=== PATIENT | female | born 1960 | race African-American/Black ===

== ENCOUNTER 2022-11-14 06:50 | Inpatient (IN) | payer OTHER ==
[~2022-11-14] VITALS: Ht 172.7 cm; Wt 88.5 kg
[2022-11-14] MEDS ORDERED: methylPREDNISolone SOD SUCC 125 MG/2ML VIAL IV ONE (07:00)
[2022-11-14] MEDS ORDERED: diphenhydrAMINE HCL 50 MG/ML VIAL IM ONE (07:00)
[2022-11-14] MEDS ORDERED: diphenhydrAMINE HCL 50 MG/ML VIAL ONE (07:11)
[2022-11-14] MEDS ORDERED: methylPREDNISolone SOD SUCC 125 MG/2ML VIAL ONE (07:11)
--- NOTE | 2022-11-14 07:15 | NUR ---
NAHOMY 40 FROM [facility] FOR SWOLLEN FACE AND LEFT HAND SINCE yesterday. denies blurring of vision, nausea nor vomiting. mentioned had same experience before due to anti HPN MEDS, WHICH WAS REDUCED DOSE BY HER MD.
--- NOTE | 2022-11-14 07:20 | NUR ---
IV ACCESS ESTABLISHED 20G RIGHT AC, BLOOD DRAWN AND SENT TO LAB.
--- NOTE | 2022-11-14 07:25 | NUR ---
meds given thru im and ivp
--- NOTE | 2022-11-14 07:32 | NUR ---
covid swab done, sent to lab
[2022-11-14 07:35] LABS: BASOPHILS % (AUTO) 0.5 % (0.0-2.0); EOSINOPHILS % (AUTO) 3.5 % (0.0-6.0); HEMATOCRIT 39 % (33-45); HEMOGLOBIN 12.6 g/dL (11.5-14.8); LYMPHOCYTES # (AUTO) 1.7 K/uL (0.8-4.8); LYMPHOCYTES % (AUTO) 29.6 % (20.0-44.0); MEAN CORPUSCULAR HGB CONC 33 g/dl (31.0-36.0); MEAN CORPUSCULAR VOLUME 89 fL (82-100); MONOCYTES # (AUTO) 0.5 K/uL (0.1-1.30); MONOCYTES % (AUTO) 8.1 % (2.0-12.0); NEUTROPHILS # (AUTO) 3.4 K/uL (1.8-8.9); NEUTROPHILS % (AUTO) 58.3 % (43.0-81.0); PLATELET COUNT (AUTO) 262 K/uL (150-450); RED BLOOD CELL COUNT(AUTO) 4.35 MIL/uL (4.0-5.2); WHITE BLOOD COUNT (AUTO) 5.8 K/uL (4.3-11.0)
[2022-11-14 07:45] LABS: CALCIUM, SERUM 9.5 mg/dL (8.5-10.1); CREATININE 0.9 mg/dL (0.6-1.3); POTASSIUM 4.1 mmol/L (3.5-5.1)
--- NOTE | 2022-11-14 07:49 | NUR ---
URINE COLLECTED , SENT TO LAB
--- NOTE | 2022-11-14 08:00 | NUR ---
SUBMITTED CLINICALS TO ADMITTING TO BEGIN INSURANCE PROCESS
[2022-11-14 08:20] LABS: BILIRUBIN,URINE NEGATIVE (NEGATIVE); COLOR,URINE YELLOW (YELLOW); LEUKOCYTE ESTERASE ,URINE 1+ (NEGATIVE); NITRITE, URINE NEGATIVE (NEGATIVE); PROTEIN,URINE NEGATIVE (NEGATIVE); UGLUCOSE NEGATIVE (NEGATIVE); UROBILINOGEN,URINE 0.2 EU/dL (0.2)
[2022-11-14 08:42] LABS: BACTERIA,URINE Rare /HPF (None Seen); RBC,URINE 0-2 /HPF (0-2); SQUAMOUS EPITHELIAL CELL,UR Few /HPF (None Seen)
--- NOTE | 2022-11-14 09:46 | NUR ---
Patient is resting comfortably in bed with eyes closed. Easily aroused. VSS
--- NOTE | 2022-11-14 11:07 | NUR ---
NURSING CALLED FOR ICU BED
--- NOTE | 2022-11-14 11:58 | NUR ---
may have diet per vo. dr mays .
--- NOTE | 2022-11-14 12:03 | NUR ---
pt prior to eating, performed swallowuing eval and she pass. she can swallow water and food.
--- NOTE | 2022-11-14 13:04 | NUR ---
bed 120-1
--- NOTE | 2022-11-14 14:03 | NUR ---
report given to alfonso nurse pt transfered with acls protocal pt remained stable during trasfer. inpatient nurse at bedside to recieve patient
--- NOTE | 2022-11-14 14:15 | NUR ---
EDUCATIONAL/DEVELOPMENT ASSISTANTICT DEVELOPMENT MANAGER NOTE PT ALERT AND ORIENTED X4. PT ON ROOM AIR TOLERATING AT 97%. R AC, IV INTACT, PATENT AND FLUSHING WELL. NOTED WITH FACIAL SWELLING. PT IS AMBULATORY WITH STANDY ASSISTANCE. WALKER AT BEDSIDE. CONNECTED TO EXTERNAL MEDIUM CYCLE SALESPERSON SINUS TACHYCARDIA. NO COMPLAINTS OF PAIN OR DISCOMFORT NOTED AT THIS TIME. ORIENTED PT TO UNIT, VERBALIZED UNDERSTANDING. ALL SAFETY MEASURES IN PLACE,. BEDSIDE TABLE WITHIN REACH. BED LOCKED AT LOWEST POSITION, SIDE RAILS UP X2. BED ALARM ON.
[2022-11-14 15:00] VITALS: BP_SYST 141; BP_SYST 148; BP_DIAS 80; BP_DIAS 88
[2022-11-14 17:00] VITALS: BP 148/80
[2022-11-14] MEDS ORDERED: ACETAMINOPHEN 325 MG TABLET PO PRN (17:30)
[2022-11-14] MEDS ORDERED: MAG HYDROX/AL HYDROX/SIMETH 30 ML UDC PO PRN (17:30)
[2022-11-14] MEDS ORDERED: MAGNESIUM HYDROXIDE 30 ML UDC PO PRN (17:30)
[2022-11-14] MEDS ORDERED: Z GUARD REMEDY 4 OZ OINT TP PRN (17:30)
[2022-11-14] MEDS ORDERED: ZOLPIDEM TARTRATE 5 MG TABLET PO PRN (17:30)
[2022-11-14] MEDS ORDERED: ONDANSETRON HCL/PF 4 MG/2 ML VIAL IVP PRN (17:30)
[2022-11-14] MEDS: FAMOTIDINE/PF INJ 20 MG/2 ML VIAL IV SCH ×2 (18:13→21:30)
[2022-11-14] MEDS: methylPREDNISolone SOD SUCC 125 MG/2ML VIAL IV SCH ×2 (18:13→21:30)
--- NOTE | 2022-11-14 18:40 | NUR ---
RN NOTE SPOKE WITH PHARMACY REGARDING 0 MEDICATIONS, AND ABOUT ADJUSTING TIME OF MEDICATIONS. SAID THEY WOULD LOOK AT IT. ALSO SPOKE WITH AND SAID OKAY TO GIVE THE MEDICATIONS SCHEDULED FOR 1729.
[2022-11-14] MEDS: diphenhydrAMINE HCL 50 MG/ML VIAL IV SCH ×2 (18:53→23:23)
--- NOTE | 2022-11-14 19:37 | NUR ---
BEE RANCHER CLOSING NOTE PT ALERT AND ORIENTED X4. PT ON ROOM AIR TOLERATING AT 97%. R AC, IV INTACT, PATENT AND FLUSHING WELL. NOTED WITH FACIAL SWELLING. PT IS AMBULATORY WITH STANDY ASSISTANCE. WALKER AT BEDSIDE. CONNECTED TO EXTERNAL NET APPLICATION ARCHITECT SINUS TACHYCARDIA AT THIS TIME. NO COMPLAINTS OF PAIN OR DISCOMFORT NOTED AT THIS TIME. ALL SAFETY MEASURES IN PLACE,. BEDSIDE TABLE WITHIN REACH. BED LOCKED AT LOWEST POSITION, SIDE RAILS UP X2. BED ALARM ON. ENDORSED TO NIGHT NEW RN FOR CONTUITY OF CARE
[2022-11-14 20:00] VITALS: BP 133/99
[2022-11-15] VITALS: BP 139/88
[2022-11-15 04:00] VITALS: BP 140/75
[2022-11-15] MEDS: methylPREDNISolone SOD SUCC 125 MG/2ML VIAL IV SCH ×3 (05:10→21:02)
[2022-11-15] MEDS: diphenhydrAMINE HCL 50 MG/ML VIAL IV SCH ×4 (05:10→23:35)
--- NOTE | 2022-11-15 06:39 | NUR ---
END OF SHIFT, PATIENT ASLEEP AT THIS TIME, AT ROOM AIR WITH O2 SAT LEVEL WNL, NSR/ST IN TELE MONITOR, IV SITE PATIENT AND INTACT, IVF INFUSING ORDERED, CONTINUE WITH SWELLING FACE,. NO AIRWAY COMPROMISED AT THIS TIME, STABLE DURING THE NIGHT WITH VS STABLE, CONT ON BENADRYL AND SOLU-MEDROL IVP, UNSTEADY, ASSISTANCE PROVIDED AT ALL TIMES, BED LOCKED AND IN LOWEST POSITION, S/R IP X2, INDEPENDENT WITH REPOSITION, WILL ENDORSE CONTINUITY OF CARE TO ONCOMING NURSE. Addendum: 11/15/22 at 0644 by WILLIAM THORPE RN NO IV FLUIDS INFUSING FOR THIS PATIENT.
[2022-11-15 07:26] LABS: CALCIUM, SERUM 9.7 mg/dL (8.5-10.1); CREATININE 0.9 mg/dL (0.6-1.3); MAGNESIUM 2.2 mg/dL (1.8-2.4); PHOSPHORUS 2.8 mg/dL (2.5-4.9); POTASSIUM 3.8 mmol/L (3.5-5.1)
[2022-11-15 07:38] LABS: BASOPHILS % (AUTO) 0.3 % (0.0-2.0); HEMATOCRIT 39 % (33-45); HEMOGLOBIN 12.7 g/dL (11.5-14.8); LYMPHOCYTES # (AUTO) 0.8 K/uL (0.8-4.8); LYMPHOCYTES % (AUTO) 7.4 % (20.0-44.0); MEAN CORPUSCULAR HGB CONC 33 g/dl (31.0-36.0); MEAN CORPUSCULAR VOLUME 90 fL (82-100); MONOCYTES # (AUTO) 0.1 K/uL (0.1-1.30); NEUTROPHILS % (AUTO) 91.3 % (43.0-81.0); PLATELET COUNT (AUTO) 290 K/uL (150-450); WHITE BLOOD COUNT (AUTO) 10.9 K/uL (4.3-11.0)
--- NOTE | 2022-11-15 07:40 | NUR ---
INSTRUCTIONAL SUPPORT SPECIALIST OPENING NOTE RECEIVED PT IN BED, AWAKE, A/0 X 4, ABLE TO VERBALIZE NEEDS. ON ROOM AIR, NO S/SX OF ACUTE RESPIRATORY DISTRESS NOTED AT THIS TIME. NO SOB. BREATHING IS EVEN AND UNLABORED. ON TELE MONITOR READING NORMAL SR, HR 100. IV ACCESS ON RAC #20G, PATENT AND INTACT, FLUSHES WELL, SL. ALL SAFETY MEASURES IN PLACE: BED LOCKED IN LOW POSITION, BED ALARM ON, HOB ELEVATED, SIDE RAILS UP X2, CALL LIGHT AND TABLE WITHIN REACH. WILL MONITOR THE PATIENT THROUGHOUT THE SHIFT
[2022-11-15 09:00] VITALS: BP 141/96
[2022-11-15] MEDS: NICOTINE PATCH (14MG) 14 MG PATCH.TD24 TD SCH (09:27)
[2022-11-15] MEDS: FAMOTIDINE/PF INJ 20 MG/2 ML VIAL IV SCH ×2 (09:27→21:03)
--- NOTE | 2022-11-15 12:24 | NUR ---
DOMINIQUE Consult: tension worker consult request. tension worker will follow up.
[2022-11-15 13:00] VITALS: BP 148/80
[2022-11-15] MEDS ORDERED: MULT-981 PO (13:10)
[2022-11-15] MEDS ORDERED: OMEP-99 PO (13:10)
[2022-11-15] MEDS ORDERED: CYCL10TA9 PO (13:10)
[2022-11-15] MEDS ORDERED: GABA300C PO (13:10)
[2022-11-15] MEDS ORDERED: ALBU8.5H8 IH (13:10)
[2022-11-15] MEDS ORDERED: LISI1TAB55 PO (13:10)
--- NOTE | 2022-11-15 15:00 | NUR ---
RN NOTE MD ORDERED FFP TRANSFUSION. PATIENT REFUSES TO SIGN CONSENT AFTER MD EXPLAINED THE SIDE EFFECTS OF TRANSFUSION. CLARIFIED PATIENTS DOUBTS AND REINFORCED THE IMPORTANCE OF FFP ADMINISTRATION BUT PATIENT HAS A STRONG CONVICTION ON HER PERSONAL BELIEFS. WAIVER SIGNED FOR REFUSING FFP TRANSFUSION. MD INFORMED. CHARGE NURSE MADE AWARE. WILL CONTINUE TO MONITOR THE PATIENT
[2022-11-15 17:00] VITALS: BP 143/94
--- NOTE | 2022-11-15 19:35 | NUR ---
RN CLOSING NOTE PATIENT IN BED, AWAKE, A/0 X 4, ABLE TO VERBALIZE NEEDS. ON ROOM AIR, NO S/SX OF ACUTE RESPIRATORY DISTRESS NOTED AT THIS TIME. NO SOB. BREATHING IS EVEN AND UNLABORED. IV ACCESS ON RAC #20G, PATENT AND INTACT, FLUSHES WELL, SL. ALL SAFETY MEASURES IN PLACE: BED LOCKED IN LOW POSITION, BED ALARM ON, HOB ELEVATED, SIDE RAILS UP X2, CALL LIGHT AND TABLE WITHIN REACH. ALL NEEDS ATTENDED AND ANTICIPATED. WILL ENDORSE TO BAND TUMBLER NURSE
--- NOTE | 2022-11-15 20:09 | NUR ---
noc rn opening note received patient in bed a/ox3-4, no s/s of apparent distress despite angioedema. denies any pain. right AC #20g on saline lock. patient has her own FWW at bedside. safety in place-- bed in lowest, locked position, bed rails upX2, call light within reach. will continue with the plan for patient. per report, patient refused FFP, waiver for refusal of ALL blood products in chart, signed by patient. will continue to monitor.
[2022-11-15 21:00] VITALS: BP 158/91
[2022-11-16 05:00] VITALS: BP 152/93
[2022-11-16] MEDS: methylPREDNISolone SOD SUCC 125 MG/2ML VIAL IV SCH (05:34)
[2022-11-16] MEDS: diphenhydrAMINE HCL 50 MG/ML VIAL IV SCH ×2 (05:34→10:43)
[2022-11-16 05:53] LABS: HEMATOCRIT 40 % (33-45); HEMOGLOBIN 12.5 g/dL (11.5-14.8); LYMPHOCYTES # (AUTO) 0.8 K/uL (0.8-4.8); LYMPHOCYTES % (AUTO) 5.9 % (20.0-44.0); MEAN CORPUSCULAR HGB CONC 32 g/dl (31.0-36.0); MEAN CORPUSCULAR VOLUME 91 fL (82-100); MONOCYTES # (AUTO) 0.4 K/uL (0.1-1.30); MONOCYTES % (AUTO) 2.8 % (2.0-12.0); NEUTROPHILS # (AUTO) 12.4 K/uL (1.8-8.9); NEUTROPHILS % (AUTO) 91.3 % (43.0-81.0); PLATELET COUNT (AUTO) 289 K/uL (150-450); RED BLOOD CELL COUNT(AUTO) 4.35 MIL/uL (4.0-5.2); WHITE BLOOD COUNT (AUTO) 13.6 K/uL (4.3-11.0)
[2022-11-16 06:24] LABS: CALCIUM, SERUM 10.1 mg/dL (8.5-10.1); CREATININE 0.9 mg/dL (0.6-1.3); MAGNESIUM 2.6 mg/dL (1.8-2.4); POTASSIUM 4.2 mmol/L (3.5-5.1)
--- NOTE | 2022-11-16 06:49 | NUR ---
noc rn closing note Patient in bed with eyes closed, easy to arouse. no s/s of apparent distress in room air. denies any pain at this time. no fluids running at this time. all needs attended. all scheduled medications administered. safety in place-- bed in lowest, locked position, call light within reach, bed rails up X2. will endorse to morning shift rn for continuity of care.
[2022-11-16] MEDS: NICOTINE PATCH (14MG) 14 MG PATCH.TD24 TD SCH (08:29)
[2022-11-16] MEDS: FAMOTIDINE/PF INJ 20 MG/2 ML VIAL IV SCH (08:30)
[2022-11-16] MEDS ORDERED: HYDR12.55 PO (09:59)
--- NOTE | 2022-11-16 11:26 | NUR ---
PATIENT IS DISCHARGED TODAY, PATIENT IS IN STABLE CONDITION. IV LINE IS DISCONTINUED.
--- NOTE | 2022-11-16 11:37 | NUR ---
Patient is a 62 year old female who presented to [facility] with Edema and dehydration. Patient was alert and oriented x4 (self, situation, place, time). Pt resides at a half-way and denied the use of drugs or alcohol for the past two months and received treatment at [facility]. Patient denies suicidal or homicidal ideation. Patient denied visual/auditory hallucinations. SW provided patient substance abuse resources and pt. was accepting. Pt. will return back to half-way. Substance Abuse resources provided included: [facility] Substance Abuse Self-Hel[facility] ([facility]) ; [facility] [id number] [facility]. [place] [id number] ; [facility] [address] [facility] [id number] ; [facility] [address] [facility] [phone] ; [facility] [address] [facility] [phone] ; [facility] [address] [facility] [phone] ; [facility] [address] [facility] [phone] ; [facility] Substance Abuse Helpl[facility] ; [facility] ; [facility]; [facility] [place]; [facility] [place]; [facility] [place]; [facility] [place]; [facility] [place]; Alcoholics Anonymous -[facility]; Jw[facility]Qfgr-Jtgunnn ; Marijuana Anonymous [facility]; Narcotics Anonymous www.na.org;
[2022-11-16] MEDS ORDERED: methylPREDNISolone SOD SUCC 125 MG/2ML VIAL IV SCH (13:00)
[2022-11-16] MEDS ORDERED: FAMOTIDINE (20 MG) 20 MG TABLET PO SCH (21:00)
== END 2022-11-16 13:32 | disposition home or self-care (01) | DRG 811 ==
LOC: ER 06:51 → TELE1 13:06 → MEDSG1 11-15 15:46
PROVIDERS: ADMIT Student in an Organized Health Care Education/Training Program; ATTEND Nurse Practitioner Family
DX: T78.3XXA Angioneurotic edema, initial encounter (principal); E86.0 Dehydration; T46.4X5A Adverse effect of angiotensin-converting-enzyme inhibitors, initial encounter; Y92.9 Unspecified place or not applicable; I10 Essential (primary) hypertension; Z20.822 Contact with and (suspected) exposure to COVID-19; Z59.00 Homelessness unspecified; F17.200 Nicotine dependence, unspecified, uncomplicated; R79.89 Other specified abnormal findings of blood chemistry
CPT/HCPCS: 36415; 80048-TC; 81001; 83735-TC; 84100-TC; 84484-TC; 85025-TC; 86850-TC; 87081-TC; 87086-TC; C9803; G0378; J1200; J2930; J3490